=== PATIENT | female | born 1985 | race Asian ===

== ENCOUNTER 2017-12-06 19:22 | Inpatient (IN) | payer OTHER ==
[~2017-12-06] VITALS: Ht 162.6 cm; Wt 71.7 kg
[~2017-12-06 19:22] MED LIST: PREN1TAB52 PO
[2017-12-06 20:54] VITALS: BP 106/60
[2017-12-06] MEDS ORDERED: RINGERS SOLUTION,LACTATED 1,000 ML IV ONE (21:00)
[2017-12-06] MEDS: RINGERS SOLUTION,LACTATED 1,000 ML IV SCH (21:03)
[2017-12-06 21:19] LABS: BASOPHILS % (AUTO) 0.5 % (0.0-2.0); EOSINOPHILS % (AUTO) 0.5 % (1.0-6.0); HEMATOCRIT 35.5 % (36-46); LYMPHOCYTES # (AUTO) 1.5 K/uL (1.0-4.8); LYMPHOCYTES % (AUTO) 13.3 % (22.0-44.0); MEAN CORPUSCULAR HEMOGLOBIN 32.4 pg (26.0-34.0); MEAN CORPUSCULAR HGB CONC 33.9 G/dL (31.0-37.0); MEAN CORPUSCULAR VOLUME 96 fL (80-100); MONOCYTES # (AUTO) 1.2 K/uL (0.1-1.0); MONOCYTES % (AUTO) 10.6 % (2.0-9.0); NEUTROPHILS # (AUTO) 8.4 K/uL (1.8-7.7); NEUTROPHILS % (AUTO) 75.1 % (40.0-70.0); PLATELET COUNT (AUTO)-OB 154 K/uL (150-450); RED BLOOD CELL COUNT(AUTO) 3.71 MIL/uL (4.00-5.20); RED CELL DISTRIBUTION WIDTH 13.9 % (11.5-14.5)
[2017-12-06] MEDS ORDERED: RINGERS SOLUTION,LACTATED 1,000 ML IV PRN (23:39)
[2017-12-06] MEDS ORDERED: METOCLOPRAMIDE HCL 5 MG/ML 2 ML VIAL IVP PRN (23:45)
[2017-12-06] MEDS ORDERED: CITRIC ACID/SODIUM CITRATE 30 ML SOLUTION UDCUP PO PRN (23:45)
[2017-12-07 00:05] VITALS: BP 103/57
[2017-12-07] MEDS ORDERED: OXYTOCIN 30 UNITS/LACT RINGERS 500 ML IV PRN (00:30)
[2017-12-07] MEDS ORDERED: AMPICILLIN SODIUM 2 GM/NS 100 ML IV ONE (00:30)
[2017-12-07] MEDS ORDERED: OXYTOCIN 30 UNITS/LACT RINGERS 500 ML IV ONE (00:38)
[2017-12-07] MEDS ORDERED: FentaNYL CITRATE-PF 100 MCG/2 ML VIAL IVP PRN (00:45)
[2017-12-07] MEDS ORDERED: ROPIVACAINE HCL/PF 0.2% 100 ML ED ONE (01:20)
[2017-12-07] MEDS ORDERED: DiphenhydrAMINE HCL 50 MG/ML VIAL IVP PRN (01:45)
[2017-12-07] MEDS ORDERED: ROPIVACAINE HCL/PF 0.2% 100 ML ED PRN (01:45)
[2017-12-07] MEDS ORDERED: ONDANSETRON HCL 4 MG/2 ML VIAL IVP PRN (01:45)
[2017-12-07] MEDS: RINGERS SOLUTION,LACTATED 1,000 ML IV SCH ×4 (02:00→12:33)
[2017-12-07] MEDS: AMPICILLIN SODIUM 1 GM/NS 50 ML IV SCH ×3 (04:49→12:33)
[2017-12-07] MEDS ORDERED: ACETAMINOPHEN 1000 MG/ISO-OSM 100 ML IV ONE (05:15)
[2017-12-07] MEDS ORDERED: GENTAMICIN 120 MG/NACL ISO-OSM 100 ML IV ONE ×2 (05:15→17:00)
[2017-12-07 07:53] LABS: GLUCOMETER DEV NAME(LOC) 4S 8; GLUCOSE,POINT OF CARE 89 MG/DL (70-110)
[2017-12-07] MEDS ORDERED: OXYGEN THERAPY IH SCH (08:00)
[2017-12-07] MEDS ORDERED: LIDOCAINE HCL/PF 2% 5 ML VIAL ONE (12:49)
[2017-12-07] MEDS ORDERED: RINGERS SOLUTION,LACTATED 1,000 ML IV ONE (14:06)
[2017-12-07] MEDS ORDERED: BENZOCAINE 20%/MENTHOL 56 GM SPRAY CANISTER TP PRN (14:15)
[2017-12-07] MEDS ORDERED: OxyCODONE HCL/ACETAMINOPHEN 5-325 MG TABLET PO PRN (14:15)
[2017-12-07] MEDS ORDERED: MEASLES/MUMPS/RUBELLA VACCINE, LIVE 0.5 ML/VIAL SQ ONE (14:15)
[2017-12-07] MEDS ORDERED: LANOLIN 7 GM OINTMENT TP PRN (14:15)
[2017-12-07] MEDS ORDERED: GLYCERIN/WITCH HAZEL LEAF 40 PADS JAR TP PRN (14:15)
[2017-12-07] MEDS: OxyCODONE HCL/ACETAMINOPHEN 5-325 MG TABLET PO PRN (15:17)
[2017-12-07] MEDS: IBUPROFEN 600 MG TABLET PO PRN (15:17)
[2017-12-07] MEDS ORDERED: *CLINICAL-GENTAMICIN DOSING CLINICAL ONE (16:15)
[2017-12-07] MEDS ORDERED: GENTAMICIN 100 MG/NACL ISO-OSM 50 ML IV SCH (17:00)
[2017-12-07] MEDS: AMPICILLIN SODIUM 2 GM/NS 100 ML IV SCH ×2 (17:02→21:57)
[2017-12-07] MEDS: MAGNESIUM HYDROXIDE SUSPENSION 30 ML UDCUP PO SCH (21:57)
[2017-12-08] MEDS: GENTAMICIN 100 MG/NACL ISO-OSM 50 ML IV SCH ×2 (01:05→09:02)
[2017-12-08] MEDS: OxyCODONE HCL/ACETAMINOPHEN 5-325 MG TABLET PO PRN (01:21)
[2017-12-08] MEDS: AMPICILLIN SODIUM 2 GM/NS 100 ML IV SCH ×2 (04:18→10:24)
[2017-12-08] MEDS: RINGERS SOLUTION,LACTATED 1,000 ML IV SCH (04:18)
[2017-12-08 06:25] LABS: ANION GAP 7 mmol/L (8-16); CARBON DIOXIDE 27 mmol/L (22-29); CHLORIDE 105 mmol/L (98-107); CREATININE 0.54 mg/dL (0.60-1.30); GLOMERULAR FILTR. RATE CALC > 60 mL/min (>60); GLUCOSE,RANDOM 67 mg/dL (70-110); POTASSIUM 3.8 mmol/L (3.5-5.1); SODIUM SERUM 139 mmol/L (136-145); UREA NITROGEN, BLOOD 6 mg/dL (7-18)
[2017-12-08] MEDS: MAGNESIUM HYDROXIDE SUSPENSION 30 ML UDCUP PO SCH (09:02)
[2017-12-08] MEDS: IBUPROFEN 600 MG TABLET PO PRN (10:32)
[2017-12-08] MEDS ORDERED: IBUP-2071 PO (11:36)
== END 2017-12-08 16:50 | disposition home or self-care (01) | DRG 775 ==
LOC: OBSVTOIN 19:22 → 4S 19:22
PROVIDERS: ADMIT Obstetrics & Gynecology; ATTEND Obstetrics & Gynecology
PROC: 10E0XZZ Delivery of Products of Conception, External Approach (ICD-10-PCS; principal; 2017-12-07)
PROC: 10907ZC Drainage of Amniotic Fluid, Therapeutic from Products of Conception, Via Natural or Artificial Opening (ICD-10-PCS; 2017-12-07)
PROC: 0HQ9XZZ Repair Perineum Skin, External Approach (ICD-10-PCS; 2017-12-07)
PROC: 3E0R3BZ Introduction of Anesthetic Agent into Spinal Canal, Percutaneous Approach (ICD-10-PCS; 2017-12-07)
PROC: 00HU33Z Insertion of Infusion Device into Spinal Canal, Percutaneous Approach (ICD-10-PCS; 2017-12-07)
DX: O99.824 Streptococcus B carrier state complicating childbirth (principal); O70.0 First degree perineal laceration during delivery; Z3A.37 37 weeks gestation of pregnancy; Z37.0 Single live birth
CPT/HCPCS: J0131; J0290; J1580; J2590; J2795; J3490; J7120

== ENCOUNTER 2020-02-01 18:26 | Inpatient (IN) | payer OTHER ==
[~2020-02-01] VITALS: Ht 162 cm; Wt 70.3 kg
[~2020-02-01 18:26] MED LIST changes: +IBUP-2071 PO
[2020-02-01 19:50] VITALS: BP 103/70
[2020-02-01] MEDS ORDERED: RINGERS SOLUTION,LACTATED 1,000 ML IV ONE (21:02)
[2020-02-01] MEDS ORDERED: OXYTOCIN 30 UNITS/LACT RINGERS 500 ML IV ONE (21:02)
[2020-02-01] MEDS ORDERED: CITRIC ACID/SODIUM CITRATE 30 ML SOLUTION UDCUP PO PRN (21:15)
[2020-02-01] MEDS ORDERED: FentaNYL CITRATE-PF 100 MCG/2 ML VIAL IVP PRN (21:15)
[2020-02-01] MEDS ORDERED: LIDOCAINE/PF 1% 30 ML VIAL INJ PRN (21:15)
[2020-02-01] MEDS ORDERED: METOCLOPRAMIDE HCL 5 MG/ML 2 ML VIAL IVP PRN (21:15)
[2020-02-01 21:45] LABS: BASOPHILS % (AUTO) 0.5 % (0.0-2.0); EOSINOPHILS % (AUTO) 1.1 % (1.0-6.0); HEMATOCRIT 37.1 % (36-46); HEMOGLOBIN 12.8 g/dL (12.0-16.0); LYMPHOCYTES # (AUTO) 2.3 K/uL (1.0-4.8); MEAN CORPUSCULAR HEMOGLOBIN 34.6 pg (26.0-34.0); MEAN CORPUSCULAR HGB CONC 34.4 G/dL (31.0-37.0); MEAN CORPUSCULAR VOLUME 100 fL (80-100); MONOCYTES # (AUTO) 0.7 K/uL (0.1-1.0); MONOCYTES % (AUTO) 8.8 % (2.0-9.0); NEUTROPHILS # (AUTO) 4.7 K/uL (1.8-7.7); NEUTROPHILS % (AUTO) 60.6 % (40.0-70.0); PLATELET COUNT (AUTO)-OB 139 K/uL (150-450); RED CELL DISTRIBUTION WIDTH 14.2 % (11.5-14.5)
[2020-02-01] MEDS: MISOPROSTOL 25 MCG TABLET VG SCH (22:18)
[2020-02-01] MEDS: RINGERS SOLUTION,LACTATED 1,000 ML IV SCH (22:23)
[2020-02-02 00:35] LABS: GLUCOMETER DEV NAME(LOC) 4S.; GLUCOSE,POINT OF CARE 120 MG/DL (70-110)
[2020-02-02] MEDS ORDERED: INFLUENZA VIRUS VACCINE QVS 2020-21 (6MO+)/PF 60 MCG/0.5 ML SYRINGE IM ONE (01:00)
[2020-02-02] MEDS: MISOPROSTOL 25 MCG TABLET VG SCH (02:21)
[2020-02-02] MEDS ORDERED: ROPIVACAINE HCL/PF 0.2% 100 ML ED ONE (04:42)
[2020-02-02] MEDS ORDERED: ONDANSETRON HCL 4 MG/2 ML VIAL IVP PRN (05:00)
[2020-02-02] MEDS ORDERED: ROPIVACAINE HCL/PF 0.2% 100 ML ED PRN (05:00)
[2020-02-02] MEDS ORDERED: NALBUPHINE HCL 10 MG/ML VIAL IVP PRN (05:00)
[2020-02-02] MEDS ORDERED: DiphenhydrAMINE HCL 50 MG/ML VIAL IVP PRN (05:00)
[2020-02-02] MEDS: RINGERS SOLUTION,LACTATED 1,000 ML IV SCH (05:17)
[2020-02-02 06:39] LABS: COVID AG,FIA SOURCE NASOPHARYNGEAL
[2020-02-02] MEDS ORDERED: OXYTOCIN 30 UNITS/LACT RINGERS 500 ML IV ONE (07:50)
[2020-02-02] MEDS ORDERED: OXYTOCIN 20 UNITS/LACT RINGERS 1,000 ML IV ONE (08:11)
[2020-02-02] MEDS ORDERED: METHYLERGONOVINE MALEATE 0.2 MG/ML VIAL IM PRN (08:45)
[2020-02-02] MEDS ORDERED: MAGNESIUM HYDROXIDE SUSPENSION 30 ML UDCUP PO PRN (10:30)
[2020-02-02] MEDS ORDERED: BENZOCAINE 20%/MENTHOL 56 GM SPRAY CANISTER TP PRN (10:30)
[2020-02-02] MEDS ORDERED: MEASLES/MUMPS/RUBELLA VACCINE, LIVE 0.5 ML/VIAL SQ ONE (10:30)
[2020-02-02] MEDS ORDERED: GLYCERIN/WITCH HAZEL LEAF 40 PADS JAR TP PRN (10:30)
[2020-02-02] MEDS ORDERED: SENNA/DOCUSATE SODIUM 8.6-50 MG TABLET PO PRN (10:30)
[2020-02-02] MEDS ORDERED: LANOLIN 7 GM OINTMENT TP PRN (10:30)
[2020-02-02] MEDS: IBUPROFEN 600 MG TABLET PO PRN ×3 (10:34→22:54)
[2020-02-02] MEDS: OXYTOCIN 20 UNITS/LACT RINGERS 1,000 ML IV SCH ×2 (10:34→10:38)
[2020-02-02] MEDS: ACETAMINOPHEN/CODEINE 300-30 MG TABLET PO PRN ×3 (11:16→21:18)
[2020-02-03] MEDS: ACETAMINOPHEN/CODEINE 300-30 MG TABLET PO PRN ×2 (01:54→11:20)
[2020-02-03 05:36] LABS: BASOPHILS % (AUTO) 0.4 % (0.0-2.0); EOSINOPHILS % (AUTO) 1.2 % (1.0-6.0); HEMATOCRIT 27.1 % (36-46); HEMOGLOBIN 9.4 g/dL (12.0-16.0); LYMPHOCYTES # (AUTO) 2.5 K/uL (1.0-4.8); LYMPHOCYTES % (AUTO) 25.4 % (22.0-44.0); MEAN CORPUSCULAR HEMOGLOBIN 34.9 pg (26.0-34.0); MEAN CORPUSCULAR HGB CONC 34.8 G/dL (31.0-37.0); MEAN CORPUSCULAR VOLUME 100 fL (80-100); MONOCYTES % (AUTO) 10.3 % (2.0-9.0); NEUTROPHILS # (AUTO) 6.1 K/uL (1.8-7.7); NEUTROPHILS % (AUTO) 62.7 % (40.0-70.0); PLATELET COUNT (AUTO)-OB 117 K/uL (150-450); RED CELL DISTRIBUTION WIDTH 14.6 % (11.5-14.5)
[2020-02-03] MEDS ORDERED: IBUP-2070 PO (10:29)
== END 2020-02-03 12:00 | disposition home or self-care (01) | DRG 807 ==
LOC: OBSVTOIN 18:26 → 4S 18:26
PROVIDERS: ADMIT Obstetrics & Gynecology; ATTEND Obstetrics & Gynecology
PROC: 10E0XZZ Delivery of Products of Conception, External Approach (ICD-10-PCS; principal; 2020-02-01)
PROC: 0KQM0ZZ Repair Perineum Muscle, Open Approach (ICD-10-PCS; 2020-02-01)
PROC: 3E0R3BZ Introduction of Anesthetic Agent into Spinal Canal, Percutaneous Approach (ICD-10-PCS; 2020-02-02)
PROC: 00HU33Z Insertion of Infusion Device into Spinal Canal, Percutaneous Approach (ICD-10-PCS; 2020-02-02)
DX: O24.429 Gestational diabetes mellitus in childbirth, unspecified control (principal); Z37.0 Single live birth; Z20.828 Contact with and (suspected) exposure to other viral communicable diseases; O70.1 Second degree perineal laceration during delivery; Z3A.38 38 weeks gestation of pregnancy
CPT/HCPCS: 86850; 86900; 86901; 87426; 90686; J2590; J2795; J7120